=== PATIENT | male | born 2000 | race Caucasian/White ===

== ENCOUNTER 2022-04-20 10:27 | Outpatient (CLI) | payer OTHER | END 2022-04-20 10:28 | disposition home or self-care (01) | LOC: TBSIIMAG 10:27 | PROVIDERS: ATTEND Plastic Surgery Surgery of the Hand | DX: S63.502A Unspecified sprain of left wrist, initial encounter (principal); S52.612A Displaced fracture of left ulna styloid process, initial encounter for closed fracture ==